=== PATIENT | male | born 1955 | race Caucasian/White ===

== ENCOUNTER 2018-07-10 11:49 | Outpatient (REF) | payer MEDICAID, SELFPAY ==
[2018-07-10 22:32] LABS: Bacteria Rare HPF (Negative); C & S Indicated? No; Casts Negative LPF (Negative); Crystals Negative HPF (Negative); Epithelial Cells Negative HPF (Negative); Mucus Negative (Negative); Other Cells Negative (Negative); RBC 0-2 (0-2); WBC Negative HPF (0-5)
[2018-07-10 22:55] LABS: Hemoglobin A1C 8.2 % (4.5-6.2)
[2018-07-10 23:16] LABS: ALT 28 U/L (12-78); AST 20 U/L (15-37); Albumin 3.7 g/dL (3.4-5.0); Alkaline Phosphatase 96 U/L (46-116); Anion Gap 10.6 mmol/L (3-11); BUN 9 mg/dL (7-18); Bilirubin, Total 0.5 mg/dL (0.2-1.0); CO2 25.4 mmol/L (21.0-32.0); CREATININE 0.89 mg/dL (0.70-1.30); Calcium 9.3 mg/dL (8.5-10.1); Chloride 96 mmol/L (98-107); Glucose 264 mg/dL (70-100); Potassium 4.3 mmol/L (3.5-5.1); Sodium 132 mmol/L (136-145); Total Protein 7.1 g/dL (6.4-8.2)
[2018-07-10 23:26] LABS: COMMENT (LAB VIEW ONLY) 8.55 mg/dL; Microalb ug/mg Crea 630.4 ug/mg Cr
== END 2018-07-10 12:09 ==
LOC: NCHCN 11:49
PROVIDERS: PCP Family Medicine; Visit Provider Nurse Practitioner Family
DX: F10.20 Alcohol dependence, uncomplicated (principal); E11.65 Type 2 diabetes mellitus with hyperglycemia; I10 Essential (primary) hypertension; E78.2 Mixed hyperlipidemia; R31.9 Hematuria, unspecified
CPT/HCPCS: 80053; 81015; 82043; 82570; 83036

== ENCOUNTER 2018-07-28 11:56 | Outpatient (REF) | payer MEDICAID, SELFPAY ==
[2018-07-28 21:26] LABS: Anion Gap 9.5 mmol/L (3-11); BUN 13 mg/dL (7-18); CO2 26.5 mmol/L (21.0-32.0); CREATININE 0.87 mg/dL (0.70-1.30); Calcium 9.3 mg/dL (8.5-10.1); Chloride 95 mmol/L (98-107); Cholesterol 159 mg/dL (50-200); Glucose 210 mg/dL (70-100); HDL Cholesterol 54 mg/dL (40-60); LDL CHOLESTEROL 86 mg/dL (<100); Potassium 4.4 mmol/L (3.5-5.1); Sodium 131 mmol/L (136-145); Triglyceride 91 mg/dL (30-150)
== END 2018-07-28 12:16 ==
LOC: NCHCN 11:56
PROVIDERS: PCP Family Medicine; Visit Provider Nurse Practitioner Family
DX: I10 Essential (primary) hypertension (principal); E11.65 Type 2 diabetes mellitus with hyperglycemia; E78.2 Mixed hyperlipidemia
CPT/HCPCS: 80048; 80061; 83721

== ENCOUNTER 2018-08-25 11:24 | Outpatient (REF) | payer MEDICAID, SELFPAY ==
[2018-08-25 20:44] LABS: Anion Gap 10.4 mmol/L (3-11); BUN 11 mg/dL (7-18); CO2 29.6 mmol/L (21.0-32.0); CREATININE 0.96 mg/dL (0.70-1.30); Calcium 9.2 mg/dL (8.5-10.1); Chloride 97 mmol/L (98-107); Glucose 180 mg/dL (70-100); Potassium 3.8 mmol/L (3.5-5.1); Sodium 137 mmol/L (136-145)
== END 2018-08-25 11:44 ==
LOC: NCHCN 11:24
PROVIDERS: PCP Family Medicine; Visit Provider Nurse Practitioner Family
DX: I10 Essential (primary) hypertension (principal); E11.65 Type 2 diabetes mellitus with hyperglycemia
CPT/HCPCS: 80048

== ENCOUNTER 2021-09-01 15:59 | Outpatient (REF) | payer MEDICAID, SELFPAY ==
[2021-09-01 15:26] LABS: HCT 45.6 % (40.0-50.0); HGB 15.9 g/dL (13.5-17.5); MCH 32.2 pg (27.0-33.0); MCHC 34.9 % (32.0-36.0); MCV 92.3 fL (80-95); MPV 11.5 fL (8.0-11.0); Platelet Count 174 10^3/uL (130-400); RBC 4.94 10^6/uL (4.36-5.78); RDW 13.4 % (11.8-14.1); RDW-SD 44.2 fL; WBC 5.24 10^3/uL (4.4-10.8)
[2021-09-01 15:44] LABS: ALT 71 U/L (16-63); AST 28 U/L (15-37); Albumin 4.2 g/dL (3.4-5.0); Alkaline Phosphatase 101 U/L (46-116); Anion Gap 11.1 mmol/L (3-11); BUN 14 mg/dL (7-18); Bilirubin, Total 0.9 mg/dL (0.2-1.0); CO2 26.9 mmol/L (21.0-32.0); CREATININE 0.9 mg/dL (0.70-1.30); Calcium 9.7 mg/dL (8.5-10.1); Chloride 97 mmol/L (98-107); Glucose 326 mg/dL (74-106); Potassium 5.3 mmol/L (3.5-5.1); Sodium 135 mmol/L (136-145); Total Protein 8.1 g/dL (6.4-8.2); Uric Acid 5.4 mg/dL (3.5-7.2)
[2021-09-01 16:07] LABS: Hemoglobin A1C 10.1 % (<5.7)
[2021-09-01 16:21] LABS: Calculated LDL 153 mg/dL (<100); Cholesterol 228 mg/dL (<200); HDL Cholesterol 51 mg/dL (40-60); Triglyceride 123 mg/dL (<150)
[2021-09-01 17:45] LABS: COMMENT (LAB VIEW ONLY) 55.02 mg/dL
[2021-09-01 17:46] LABS: Microalb ug/mg Crea 856.1 ug/mg Cr
== END 2021-09-01 16:00 | disposition home or self-care (01) ==
LOC: NCHCN 15:59
PROVIDERS: PCP Family Medicine; Visit Provider Nurse Practitioner Family
DX: E11.65 Type 2 diabetes mellitus with hyperglycemia (principal); I10 Essential (primary) hypertension; E78.2 Mixed hyperlipidemia; R80.9 Proteinuria, unspecified; M10.9 Gout, unspecified
CPT/HCPCS: 80053; 80061; 85027; 82043; 82570; 83036; 84550

== ENCOUNTER 2021-09-08 15:55 | Outpatient (REF) | payer MEDICAID, SELFPAY | END 2021-09-08 15:56 | disposition home or self-care (01) | LOC: NCHCN 15:55 | PROVIDERS: PCP Family Medicine; Visit Provider Nurse Practitioner Family | DX: E11.621 Type 2 diabetes mellitus with foot ulcer (principal) | CPT/HCPCS: 87077; 87070; 87186; 87205 ==

== ENCOUNTER 2022-05-03 17:58 | Outpatient (REF) | payer MEDICAID, SELFPAY ==
[2022-05-03 15:35] LABS: HCT 45.4 % (40.0-50.0); HGB 16.1 g/dL (13.5-17.5); MCH 33.2 pg (27.0-33.0); MCHC 35.5 % (32.0-36.0); MCV 94 fL (80-95); MPV 11.2 fL (8.0-11.0); Platelet Count 153 10^3/uL (130-400); RBC 4.85 10^6/uL (4.36-5.78); RDW 13.7 % (11.8-14.1); RDW-SD 46.5 fL; WBC 7.09 10^3/uL (4.4-10.8)
[2022-05-03 15:45] LABS: Prothrombin Time 10.4 sec (9.3-11.0)
[2022-05-03 16:00] LABS: ALT 69 U/L (16-63); AST 37 U/L (15-37); Albumin 3.8 g/dL (3.4-5.0); Alkaline Phosphatase 80 U/L (46-116); Anion Gap 7.8 mmol/L (3-11); BUN 16 mg/dL (7-18); Bilirubin, Total 0.9 mg/dL (0.2-1.0); CO2 29.2 mmol/L (21.0-32.0); CREATININE 1.1 mg/dL (0.70-1.30); Calcium 9.3 mg/dL (8.5-10.1); Calculated LDL 42 mg/dL (<100); Chloride 98 mmol/L (98-107); Cholesterol 116 mg/dL (<200); Estimated GFR 74.96 (mL/min/1.73m2); Glucose 134 mg/dL (74-106); HDL Cholesterol 47 mg/dL (40-60); Potassium 4.9 mmol/L (3.5-5.1); Sodium 135 mmol/L (136-145); Total Protein 7.4 g/dL (6.4-8.2); Triglyceride 139 mg/dL (<150)
[2022-05-03 16:21] LABS: Hemoglobin A1C 6.3 % (<5.7)
== END 2022-05-03 17:59 | disposition home or self-care (01) ==
LOC: NCHCN 17:58
PROVIDERS: PCP Family Medicine; Visit Provider Nurse Practitioner Family
DX: E11.65 Type 2 diabetes mellitus with hyperglycemia; F10.20 Alcohol dependence, uncomplicated; I25.10 Atherosclerotic heart disease of native coronary artery without angina pectoris; I10 Essential (primary) hypertension
CPT/HCPCS: 80053; 80061; 85027; 83036; 85610

== ENCOUNTER 2022-09-22 16:12 | Outpatient (REF) | payer MEDICARE, MEDICAID, SELFPAY ==
[2022-09-22 21:06] LABS: HCT 43.5 % (40.0-50.0); HGB 15.1 g/dL (13.5-17.5); MCH 32.1 pg (27.0-33.0); MCHC 34.7 % (32.0-36.0); MCV 92 fL (80-95); MPV 11.3 fL (8.0-11.0); Platelet Count 170 10^3/uL (130-400); RBC 4.71 10^6/uL (4.36-5.78); RDW 13.3 % (11.8-14.1); RDW-SD 44.9 fL; WBC 6.47 10^3/uL (4.4-10.8)
== END 2022-09-22 16:13 | disposition home or self-care (01) ==
LOC: NCHCN 16:12
PROVIDERS: PCP Family Medicine; Visit Provider Family Medicine
DX: R42 Dizziness and giddiness (principal)
CPT/HCPCS: 85027

== ENCOUNTER 2022-11-08 09:13 | Outpatient (REF) | payer MEDICARE, MEDICAID, SELFPAY ==
[2022-11-08 18:22] LABS: COMMENT (LAB VIEW ONLY) 44.83 mg/dL
[2022-11-08 18:40] LABS: Microalb ug/mg Crea 1172.2 ug/mg Cr
== END 2022-11-08 09:14 | disposition home or self-care (01) ==
LOC: NCHCN 09:13
PROVIDERS: PCP Family Medicine; Visit Provider Nurse Practitioner Family
DX: E11.9 Type 2 diabetes mellitus without complications (principal)
CPT/HCPCS: 82043; 82570

== ENCOUNTER 2023-01-10 17:36 | Outpatient (REF) | payer MEDICARE, MEDICAID, SELFPAY ==
[2023-01-10 21:29] LABS: Anion Gap 12.7 mmol/L (3-11); BUN 7 mg/dL (7-18); CO2 20.3 mmol/L (21.0-32.0); Calcium 8.8 mg/dL (8.5-10.1); Chloride 92 mmol/L (98-107); Estimated GFR 83.52 (mL/min/1.73m2); Glucose 94 mg/dL (74-106); Potassium 4.9 mmol/L (3.5-5.1); Sodium 125 mmol/L (136-145)
== END 2023-01-10 17:37 | disposition home or self-care (01) ==
LOC: NCHCN 17:36
PROVIDERS: PCP Family Medicine; Visit Provider Nurse Practitioner Family
DX: E87.1 Hypo-osmolality and hyponatremia (principal)
CPT/HCPCS: 80048

== ENCOUNTER 2023-08-03 11:49 | Outpatient (REF) | payer MEDICARE, MEDICAID, SELFPAY ==
[2023-08-03 16:15] LABS: HCT 43.4 % (40.0-50.0); HGB 15.6 g/dL (13.5-17.5); MCH 33.1 pg (27.0-33.0); MCHC 35.9 % (32.0-36.0); MCV 92 fL (80-95); MPV 11.3 fL (8.0-11.0); Platelet Count 175 10^3/uL (130-400); RBC 4.72 10^6/uL (4.36-5.78); RDW 12.8 % (11.8-14.1); RDW-SD 43.1 fL; WBC 5.97 10^3/uL (4.4-10.8)
[2023-08-03 16:41] LABS: ALT 42 U/L (16-63); AST 23 U/L (15-37); Albumin 3.5 g/dL (3.4-5.0); Alkaline Phosphatase 85 U/L (46-116); Anion Gap 10.7 mmol/L (3-11); BUN 17 mg/dL (7-18); CO2 26.3 mmol/L (21.0-32.0); CREATININE 1.1 mg/dL (0.70-1.30); Calcium 9.3 mg/dL (8.5-10.1); Calculated LDL 120 mg/dL (<100); Chloride 93 mmol/L (98-107); Cholesterol 214 mg/dL (<200); Glucose 305 mg/dL (74-106); HDL Cholesterol 52 mg/dL (40-60); Potassium 4.4 mmol/L (3.5-5.1); Sodium 130 mmol/L (136-145); Total Protein 7.4 g/dL (6.4-8.2); Triglyceride 213 mg/dL (<150)
[2023-08-03 17:14] LABS: Hemoglobin A1C 10.9 % (<5.7)
== END 2023-08-03 11:50 | disposition home or self-care (01) ==
LOC: NCHCN 11:49
PROVIDERS: PCP Family Medicine; Visit Provider Nurse Practitioner Family
DX: E78.2 Mixed hyperlipidemia (principal); E11.9 Type 2 diabetes mellitus without complications
CPT/HCPCS: 80053; 80061; 85027; 83036

== ENCOUNTER 2023-10-24 15:19 | Outpatient (REF) | payer MEDICARE, SELFPAY ==
[2023-10-24 21:55] LABS: Hemoglobin A1C 7.2 % (<5.7)
== END 2023-10-24 15:20 | disposition home or self-care (01) ==
LOC: NCHCN 15:19
PROVIDERS: PCP Family Medicine; Visit Provider Family Medicine
DX: E11.8 Type 2 diabetes mellitus with unspecified complications (principal)
CPT/HCPCS: 83036

== ENCOUNTER 2024-08-07 15:53 | Outpatient (REF) | payer MEDICARE, SELFPAY ==
[2024-08-07 21:06] LABS: HCT 42.5 % (40.0-50.0); HGB 14.4 g/dL (13.5-17.5); MCH 30.7 pg (27.0-33.0); MCHC 33.9 % (32.0-36.0); MCV 91 fL (80-95); MPV 10.9 fL (8.0-11.0); Platelet Count 266 10^3/uL (130-400); RBC 4.69 10^6/uL (4.36-5.78); RDW 14.2 % (11.8-14.1); RDW-SD 47.1 fL; WBC 9.53 10^3/uL (4.4-10.8)
[2024-08-07 21:26] LABS: Iron 64 ug/dL (65-175); Total Iron Binding Capacity 271 ug/dL (250-450); Transferrin Sat 24 % (20-55)
[2024-08-07 21:34] LABS: Ferritin 635 ng/mL (26-388)
== END 2024-08-07 15:54 | disposition home or self-care (01) ==
LOC: NCHCN 15:53
PROVIDERS: PCP Family Medicine; Visit Provider Nurse Practitioner Family
DX: G25.81 Restless legs syndrome (principal)
CPT/HCPCS: 85027; 82728; 83540; 83550

== ENCOUNTER 2025-05-20 17:18 | Outpatient (REF) | payer MEDICARE, MEDICAID, SELFPAY ==
[2025-05-20 21:31] LABS: HCT 40.4 % (40.0-50.0); HGB 13.9 g/dL (13.5-17.5); MCH 31.0 pg (27.0-33.0); MCHC 34.4 % (32.0-36.0); MCV 90 fL (80-95); MPV 11.4 fL (8.0-11.0); Platelet Count 240 10^3/uL (130-400); RBC 4.48 10^6/uL (4.36-5.78); RDW 13.4 % (11.8-14.1); RDW-SD 44.0 fL; WBC 11.23 10^3/uL (4.4-10.8)
[2025-05-20 21:52] LABS: ALT 18 U/L (16-63); AST 14 U/L (15-37); Albumin 3.6 g/dL (3.4-5.0); Alkaline Phosphatase 152 U/L (46-116); Anion Gap 11.4 mmol/L (3-11); BUN 21 mg/dL (7-18); Bilirubin, Total 0.6 mg/dL (0.2-1.0); CO2 24.6 mmol/L (21.0-32.0); Calcium 9.3 mg/dL (8.5-10.1); Calculated LDL 37 mg/dL (<100); Chloride 97 mmol/L (98-107); Cholesterol 100 mg/dL (<200); Estimated GFR 60.21 (mL/min/1.73m2); Glucose 157 mg/dL (74-106); HDL Cholesterol 33 mg/dL (>or=40); Potassium 4.7 mmol/L (3.5-5.1); Sodium 133 mmol/L (136-145); Total Protein 7.7 g/dL (6.4-8.2); Triglyceride 150 mg/dL (<150)
== END 2025-05-20 17:19 | disposition home or self-care (01) ==
LOC: NCHCN 17:18
PROVIDERS: PCP Family Medicine; Visit Provider Nurse Practitioner Family
DX: I10 Essential (primary) hypertension (principal)
CPT/HCPCS: 80053; 80061; 85027